=== PATIENT | female | born 1950 | race Caucasian/White ===

== ENCOUNTER 2020-03-25 11:13 | Outpatient (CLI) | payer MEDICARE, OTHER, SELFPAY ==
--- NOTE | 2020-03-25 11:28 | MM_ITS ---
WS: [id number] BILATERAL DIGITAL SCREENING MAMMOGRAPHY WITH CAD CLINICAL INFORMATION: SCREENING HISTORY: Screening mammogram. No current complaints. COMPARISON: December 17, 2018 TECHNIQUE: Bilateral CC and MLO views. FINDINGS: Scattered fibroglandular densities bilaterally. No suspicious focal mass, asymmetry, calcifications, or architectural distortion. No evidence of malignancy. Vascular calcification. A few punctate calcif ications are stable. MM/[place] [id number] IMPRESSION: BI-RADS: 2-Benign FOLLOW UP: 1 Year Follow-up Recommend return to annual screening mammography.
== END 2020-03-25 11:14 | disposition home or self-care (01) ==
LOC: RADSHAW 11:21
PROVIDERS: PCP Family Medicine; Visit Provider Family Medicine
DX: Z12.31 Encounter for screening mammogram for malignant neoplasm of breast (principal)
CPT/HCPCS: 77067

== ENCOUNTER 2020-12-22 14:10 | Outpatient (CLI) | payer MEDICARE, OTHER, SELFPAY ==
--- NOTE | 2020-12-22 14:19 | XR_ITS ---
WS: [id number] SCREENING DEXA SCAN [place] CLINICAL INFORMATION: POSTMENOPAUSAL COMPARISON: None. FINDINGS: The L1-L4 bone mineral density measures 1.161 g/cm2. This corresponds to a T score score of -0.2 and Z score of 1.5. Left femoral neck bone mineral density measures 1.039 g/cm2. This corresponds to a T score of 0.3 and Z score of 1.7. Right femoral neck bone mineral density measures 1.085 g/cm2. This corresponds to a T score 0.6of and Z score of 2.0. Mean femoral neck bone mineral density measures 1.062 g/cm2. This corresponds to a T score of 0.4 and Z score of 1.8. XR/XR DEXA axial skeleton* [id number] IMPRESSION: Normal bone mineralization. Patient's FRAX calculated 10 year probability for major osteoporotic fracture i s 7.7 % and osteoporotic hip fracture is 0.5%.
== END 2020-12-22 14:11 | disposition home or self-care (01) ==
PROVIDERS: PCP Family Medicine; Visit Provider Family Medicine
DX: Z78.0 Asymptomatic menopausal state (principal)
CPT/HCPCS: 77080

== ENCOUNTER → 2021-12-12 15:05 | Outpatient (BNVA) | payer MEDICARE, OTHER, SELFPAY | PROVIDERS: PCP Family Medicine; Visit Provider Family Medicine | DX: E11.9 Type 2 diabetes mellitus without complications (principal) | CPT/HCPCS: 80053; 80061; 83036; 85025 ==

== ENCOUNTER → 2021-12-19 14:53 | Outpatient (BNVA) | payer MEDICARE, OTHER, SELFPAY | PROVIDERS: PCP Family Medicine; Visit Provider Family Medicine | DX: E03.9 Hypothyroidism, unspecified (principal); E78.5 Hyperlipidemia, unspecified | CPT/HCPCS: 84443 ==

== ENCOUNTER 2022-07-19 10:59 | Outpatient (CLI) | payer MEDICARE, OTHER, SELFPAY ==
--- NOTE | 2022-07-19 11:13 | MM_ITS ---
WS: [id number] SCREENING DIGITAL BREAST TOMOSYNTHESIS MAMMOGRAM WITH CAD HISTORY: SCREENING COMPARISON: 03/25/2020 and 12/17/2018 Bilateral CC and MLO with tomosynthesis and synthetic mammography submitted. Computer aided detection analyzed. Breast composition: There are scattered areas of fibroglandular density. Well-circumscribed mass in the lateral inferior LEFT breast near 4:00 at a middle depth. This new mas s measures 9.4 mm. There is an additional 1.0 cm mass in the anterior medial inferior LEFT breast. RI GHT breast is negative. MM/[place] [id number] IMPRESSION: BI-RADS: 0-Incomplete: Need additional imaging evaluation FOLLOW UP: Need Additional Imaging LEFT breast: Spot compression views (CC and MLO). True ML. Ultrasound to follow if abnormality persists.
== END 2022-07-19 11:00 | disposition home or self-care (01) ==
LOC: RAD 11:00
PROVIDERS: PCP Family Medicine; Visit Provider Family Medicine
DX: Z12.31 Encounter for screening mammogram for malignant neoplasm of breast (principal)
CPT/HCPCS: 77063; 77067

== ENCOUNTER → 2022-07-24 09:38 | Outpatient (BNVA) | payer MEDICARE, OTHER, SELFPAY | PROVIDERS: PCP Family Medicine; Visit Provider Podiatrist Foot & Ankle Surgery | DX: M21.611 Bunion of right foot (principal); M25.872 Other specified joint disorders, left ankle and foot; M77.41 Metatarsalgia, right foot; M77.42 Metatarsalgia, left foot | CPT/HCPCS: 73630; 99203 ==

== ENCOUNTER 2022-08-07 09:35 | Outpatient (CLI) | payer MEDICARE, OTHER, SELFPAY ==
--- NOTE | 2022-08-07 09:51 | MM_ITS ---
WS: [id number] ADDITIONAL VIEWS LEFT MAMMOGRAM with tomosynthesis. LEFT BREAST ULTRASOUND HISTORY: ABNORMAL MAMMO COMPARISON: 07/19/2022, 03/25/2020 LEFT MAMMOGRAM: Spot compression views and true ML with tomosynthesis and sympathetic mammography. Nodules persist in the LEFT breast as seen on the prior study. Well-circumscribed mass in the lateral LEFT breast measures 9 mm and is unchanged. There is an additional 9 mm nodule in the medial breast just near the nipple line. Ultrasound to follow. LEFT BREAST ULTRASOUND 2-D and color Doppler imaging submitted. Multiple cysts are noted within the breast. At 9:00 there is a cyst measuring 7 x 5 x 8 mm correspond ing to the mammographic abnormality. This is near the areola. In the lateral LEFT breast from 3-5 o'c lock there are multiple cysts. The largest measuring 1.0 x 0.6 x 0.7 cm corresponds to the mammograph ic findings. No solid masses are identified. MM/[place] [id number] IMPRESSION: BI-RADS: 2-Benign FOLLOW UP: 1 Year Follow-up LEFT breast masses correspond to benign cysts which have developed since the pr ior exam.
== END 2022-08-07 09:36 | disposition home or self-care (01) ==
PROVIDERS: PCP Family Medicine; Visit Provider Family Medicine
DX: R92.8 Other abnormal and inconclusive findings on diagnostic imaging of breast (principal); N60.02 Solitary cyst of left breast
CPT/HCPCS: 76642; 77061; G0279

== ENCOUNTER 2022-09-04 09:51 | Outpatient (CLI) | payer MEDICARE, OTHER, SELFPAY | END 2022-09-04 09:52 | disposition home or self-care (01) | LOC: SPT 09:52 | PROVIDERS: PCP Family Medicine; Visit Provider Podiatrist Foot & Ankle Surgery | DX: Z46.89 Encounter for fitting and adjustment of other specified devices (principal); M77.40 Metatarsalgia, unspecified foot; M21.619 Bunion of unspecified foot; M25.872 Other specified joint disorders, left ankle and foot | CPT/HCPCS: 97760; L3030 ==

== ENCOUNTER → 2022-12-26 10:15 | Outpatient (BNVA) | payer MEDICARE, OTHER, SELFPAY | PROVIDERS: PCP Family Medicine; Visit Provider Family Medicine | DX: E78.5 Hyperlipidemia, unspecified (principal); E03.9 Hypothyroidism, unspecified | CPT/HCPCS: 80053; 80061; 85025 ==

== ENCOUNTER 2023-08-17 10:15 | Outpatient (CLI) | payer MEDICARE, OTHER, SELFPAY ==
--- NOTE | 2023-08-17 10:20 | MM_ITS ---
WS: [id number] BILATERAL SCREENING DIGITAL TOMOSYNTHESIS MAMMOGRAM WITH CAD HISTORY: SCREENING COMPARISON: 03/25/2020, 07/19/2022 Bilateral CC and MLO views with tomosynthesis and synthetic mammography submitted. Computer aided det ection analyzed. Breast composition: There are scattered areas of fibroglandular density. No suspicious masses, microc alcifications or architectural distortion. Reidentified is a slightly lobulated 9 mm mass in the medi al LEFT breast which was identified as a cyst on the prior mammogram and ultrasound from 08/07/2022. B enign calcification RIGHT breast. IMPRESSION: MM/[place] [id number] BI-RADS: 2-Benign FOLLOW UP: 1 Year Follow-up
== END 2023-08-17 10:16 | disposition home or self-care (01) ==
LOC: RAD 10:16
PROVIDERS: PCP Family Medicine; Visit Provider Family Medicine
DX: Z12.31 Encounter for screening mammogram for malignant neoplasm of breast (principal); R92.323 Mammographic fibroglandular density, bilateral breasts; N63.20 Unspecified lump in the left breast, unspecified quadrant; R92.1 Mammographic calcification found on diagnostic imaging of breast
CPT/HCPCS: 77063; 77067

== ENCOUNTER 2023-10-09 07:54 | Observation (INO) | payer MEDICARE, OTHER, SELFPAY ==
[2023-10-09] VITALS (21 sets, daily range): BP systolic 103–150; BP diastolic 51–74; PULSE 52–93; RESP 11–31; TEMP 36.4–36.7; O2SAT 90–97; BMI 27.4
--- NOTE | 2023-10-09 08:17 | CT_ITS ---
WS: [id number] CT ABDOMEN AND PELVIS NONCONTRAST HISTORY: Abdominal pain TECHNIQUE: Imaging performed through the abdomen and pelvis. Coronal and sagittal reformats are submi tted. All CT scans at [facility] use at least one of these dose optimization techniques: auto mated exposure control; mA and/or kV adjustment per patient size (includes targeted exams where dose is matched to clinical indication); or iterative reconstruction. DLP: 535.49 mGy.cm COMPARISON: None available. Lower thorax: Benign granuloma RIGHT lung base. Heart size is normal. Moderate hiatal hernia. Liver: Normal size liver. No mass or bile duct dilatation. Gallbladder: Slight gallbladder hydrops. There is a large stone in the lumen of the gallbladder with a maximum diameter of 1.7 cm. There is no pericholecystic fluid. The common bile duct is normal size. Pancreas: Normal size and attenuation. Normal pancreatic duct. No pancreatitis or mass. Spleen: Normal size with granulomata. Adrenal glands: Normal. No mass. Right kidney: Normal size kidney with no mass or hydronephrosis. Left kidney: Normal size kidney with no mass or hydronephrosis. Aorta: Normal abdominal aorta, no aneurysm or atherosclerosis. No free fluid, intraperitoneal air or significant lymphadenopathy. GI tract: Minimally distended stomach. There is no small bowel obstruction. No evidence for appendici tis. There is mild pericolonic stranding with hazy attenuation beginning at the hepatic flexure throu gh transverse colon and to a lesser extent distally. No obstructive pattern. There are a few scattere d diverticula distally without acute diverticulitis. Abdominal wall: Small umbilical hernia contains fat only. Pelvis: No free fluid. Prior hysterectomy. No adenopathy. Osseous structures: Mild thoracolumbar scoliosis. Asymmetric disc space narrowing at L4-5. CT/CT abdomen pelvis wo con [id number] IMPRESSION: 1. Cholelithiasis without evidence for acute cholecystitis. 2. Mild pericolonic inflammation involving the ascending and transverse colon predominantly. This is most likely due to infection or portal hypertension. Isc hemia may appear similar. No significant atherosclerotic plaque is noted in the aorta or mesenteric arteries. 3. Moderate hiatal hernia. 4. No renal obstruction. 5. Normal appendix.
[2023-10-09 08:39] LABS: Basophils # 0.1 10^3/uL (0.0-0.1); Basophils % 1.1 %; Eosinophils # 0.1 10^3/uL (0.0-0.8); Eosinophils % 1.7 %; Hematocrit 44.4 % (36-47); Lymphocytes # 1.8 10^3/uL (0.8-4.8); Lymphocytes % 33.5 %; Mean Corpuscular Hemoglobin 30.5 pg (27-33); Mean Corpuscular Volume 89.7 fl (85-98); Mean Platelet Volume 9.1 fL (7.4-10.4); Monocytes # 0.4 10^3/uL (0.2-0.9); Neutrophils # 2.89 10^3/uL (1.8-7.7); Neutrophils % 55.5 %; Nucleated Red Blood Cells % 0 %; Platelet Count 311 10^3/cmm (157-399); Red Blood Count 4.95 10^6/uL (3.85-5.65); Red Cell Distribution Width 12.8 % (12.1-15.1); White Blood Count 5.22 10^3/uL (3.29-11.43)
--- NOTE | 2023-10-09 08:40 | ECG_ITS ---
[facility] Test Date: 2023-10-09 Pat Name: Jenna Bo Department: Room: Gender: Female Credit Specialist: : 1950 Requested By: Xiang Louise Order Number: [id number] Los MD: Vladimir Adamson M.D. Measurements Intervals [place] Rate: 48 P: 58 ID: [id number] QRS: 13 QRSD: 89 T: 1 QT: 450 QTc: 405 Interpretive Statements SINUS BRADYCARDIA LOW QRS VOLTAGE IN PRECORDIAL LEADS [QRS DEFLECTION < 1.0 mV IN CHEST LEADS] No previous ECG available for comparison Electronically Signed On 10-12-2023 13:22:03 CDT by Vladimir Adamson M.D. [id number]
[2023-10-09] MEDS: ondansetron 2 mg/ML SDV 2 mL 4 MG IVP (08:42)
[2023-10-09 08:46] LABS: Alanine Aminotransferase 11 U/L (0-33); Albumin Level 3.8 g/dL (3.5-5.2); Alkaline Phosphatase 86 U/L (35-105); Anion Gap 16.5 (5-19); Aspartate Amino Transferase 15 U/L (0-32); Blood Urea Nitrogen 9 mg/dL (8-23); Calcium 8.9 mg/dL (8.5-10.5); Carbon Dioxide 24 mmol/L (22-29); Chloride 101 mmol/L (98-107); Creatinine Clr Calc Pharmacy 57.4745; Globulin 3.2 g/dL (1.3-4.6); Glucose 119 mg/dL (65-115); Lipase 16 U/L (13-60); Osmolality Calculated 286 mOsm/kg (285-295); Potassium 3.5 mmol/L (3.5-5.1); Sodium 138 mmol/L (136-145); Total Bilirubin 0.6 mg/dL (0.15-1.2)
--- NOTE | 2023-10-09 09:14 | CT_ITS ---
WS: [id number] CT HEAD NONCONTRAST HISTORY: dizziness TECHNIQUE: Contiguous axial imaging performed through the brain in 2.5 mm imaging. Bone and soft tiss ue windows. Sagittal and coronal reformats reviewed. All CT scans at [facility] use at least one of these dose optimization techniques: automated exposure control; mA and/or kV adjustment per pa tient size (includes targeted exams where dose is matched to clinical indication); or iterative recon struction. DLP: 1075.74 mGy.cm COMPARISON: None available. No acute intracranial hemorrhage, midline shift or mass effect. Mild atrophy and mild small vessel ischemic disease. No prior infarct. Ventricles: Normal size with no hydrocephalus. No inferior displacement the cerebellar tonsils. Paranasal sinuses: As visualized are clear. Mastoid air cells: Coalescence and sclerosis of the mastoid air cells on the LEFT. Cerumen in the LEF T external auditory canal. Calvarium and scalp: Skull is intact with no soft tissue edema or swelling. CT/CT head wo con* [id number] IMPRESSION: 1. No acute intracranial hemorrhage or edema. 2. Mild cerebral atrophy and small vessel ischemic disease.
--- NOTE | 2023-10-09 09:22 | ED_ITS ---
HPI - Nausea/Vomiting/Diarrhea 2 General: Chief complaint: Nausea/Vomiting/Diarrhea Stated complaint: N/V Time Seen by Provider: 10/09/23 08:02 Source: patient Mode of arrival: ambulatory History of Present Illness: 73-year-old female presents to the emerg ency room complaining of nausea and vomiting along with dizziness. The nausea initially began yesterday although she had no dizziness associated with it this morning she woke up she was very dizzy when she first stood up when she laid back down, she said she improved when she settled in . Symptoms are reproducible whenever she moves her head too much or when she sits up. During the process exam I had her sit up she stated her symptoms got much worse. We also tried to lay her down flat to do orthostatics when I was finishing my exam and she could not tolerate that her symptoms again got significantly worse. She even noticed as we are talking doing her history of she shook her head yes or no it would seem to make her symptoms worse. She reported that when she rode in with the ambulance they were very severe. She did not notice difficulty with speech or swallowing. No difficulty with vision no weakness that is what is lateralizing. She had a couple of episodes of diarrhea after she arrived in the emergency room no hematochezia or melena no hematemesis. She denies any chest pain she is moderately bradycardic but otherwise asymptomatic of that. The nausea and dizziness are all new this is not something she has had in the past. Her last known well would be around 11:00 last night. She said she did not wake up at any point during the night until she woke up this morning with her symptoms. MD elicited complaint: nausea, vomiting and diarrhea Onset (ago): minute(s) Associated nausea: Yes Location of pain: Diffuse Severity: mild Quality: cramping Exacerbating factors: movement (Sitting up or laying down) Relieving factors: other (Remaining still) Associated symtoms: Reports nausea; Denies altered mental status, anxiety, bloating, change in vision, chest pain, cough, diaphoresis, decreased urine output, dizziness, dysuria, epistaxis, fatigue, fecal incontinence, fevers/chills, headache(s), anorexia, malaise, myalgias, numbness, palpitations, rash, short of breath, syncope, tenesmus, tinnitus or weakness Review of Systems 2 Const: Denies: fever(s), chills, fatigue, malaise or diaphoresis Eyes: Denies: change in vision ENMT: Denies: tinnitus or epistaxis Card: Denies: chest pain, palpitations or syncope Resp: Denies: dyspnea GI: Reports: nausea; Denies: abdominal pain, bloating or fecal incontinence : Denies: dysuria, urinary frequency or urinary urgency Musc: Denies: neck pain or back pain Skin/Breast: Denies: rash Neuro: Denies: headache(s) or dizziness Psych: Denies: anxiety PFSH ED 2 PFSH: Medical History (Updated 10/11/23 @ 06:23 by Xiang Holt DO) Anxiety GERD (gastroesophageal reflux disease) Hyperlipidemia Hypothyroid Surgical History (Updated 10/09/23 @ 10:49 by Maxwell Verma MD) History of breast biopsy History of hysterectomy Family History (Updated 10/09/23 @ 10:49 by Maxwell Verma MD) Other Cancer Social History (Updated 10/09/23 @ 10:49 by Maxwell Verma MD) Smoking and tobacco/nicotine status: never used tobacco/nicotine Alcohol intake: never Physical Exam 2 Const: EXAM LIMITATIONS: no altered mental status GENERAL APPEARANCE: c ooperative and comfortable ORIENTATION/CONSCIOUSNESS: Yes awake, Yes oriented to person, Yes oriented to place and Yes oriented to time HENMT: COMMON NORMALS: normocephalic, atraumatic and hearing grossly normal bilaterally HEAD & SCALP: normocephalic and atraumatic Resp: COMMON NORMALS: normal respiratory effort, No retractions, No use of accessory muscles and clear to auscultation bilaterally AUSCULTATION: clear to auscultation bilaterally Cardio: COMMON NORMALS: regular rhythm and No murmurs present (Cardio) R ATE: bradycardic RHYTHM: regular rhythm GI: COMMON NORMALS: Soft to palpation and No hepatosplenomegaly present A USCULTATION: Yes normoactive bowel sounds PALPATION: Yes Soft to palpation, No Tenderness to palpation present (GI), No Guarding due to palpation present (GI) and Yes No hepatosplenomegaly present Extremity: COMMON NORMALS: normal to inspection, capillary refill normal, no clubbing, cyanosis or edema, no calf tenderness and no pedal edema Neuro: SENSORIUM/ORIENTATION: Yes oriented to person, Yes oriented to place and Yes oriented to time Skin: COMMON NORMALS: no rashes or lesions noted GENERAL SKIN EXAM: no rashes or lesions noted Course 2 Vital Signs: Vital signs: Vital Signs Temperature 98.0 F 10/10/23 09:59 Pulse Rate 66 10/10/23 09:59 Respiratory Rate 18 10/10/23 09:59 Blood Pressure 108/65 10/10/23 09:59 Pulse Oximetry 92 10/10/23 09:59 Oxygen Delivery Me thod Room Air 10/10/23 07:54 MDM - Nausea/Vomiting/Diarrhea Medical Decision Making Initially patient main complaint was reported nausea vomiting and diarrhea. When I seen her and talks to her she added a component of dizziness and was actually a pretty prominent part of her history was suspicious of a posterior stroke. However initially noted that her symptoms were somewhat reproducible with change in position and moving her head. We went ahead and did do the CT she not had any recent trauma the CT of her head went very poorly and she when she came back from the emergency room she was vomiting profusely. Her only significant finding is ataxia is more prominent with attempts at heel negron and it is with [id number] but present on both testing. Discussed with Dr. Gould. Her last known well would be 11:[address] Gould did ask that we go ahead and call a stroke alert even though she is out of the window for tPA even at the time of presentation additionally she her stroke score is not adequate for embolectomy. Dr. Gould did recommend going ahead with a CTA head and neck. Symptoms concerning for possible posterior CVA. Medical Records I reviewed the patient's medical records. Lab Data I reviewed the patient's lab results. 10/10/23 05:23 10/10/23 05:23 Radiology Impressions Abdomen/Pelvis CT 10/09/23 08:17 IMPRESSION: 1. Cholelithiasis without evidence for acute cholecystitis. 2. Mild pericolonic inflammation involving the ascending and transverse colon predominantly. This is most likely due to infection or portal hypertension. Ischemia may appear similar. No significant atherosclerotic plaque is noted in the aorta or mesenteric arteries. 3. Moderate hiatal hernia. 4. No renal obstruction. 5. Normal appendix. Head CT 10/09/23 09:14 IMPRESSION: 1. No acute intracranial hemorrhage or edema. 2. Mild cerebral atrophy and small vessel ischemic disease. Head/Neck CTA 10/09/23 09:39 IMPRESSION: 1. No significant cervical intracranial carotid artery stenosis. 2. Dominant LEFT vertebral artery. No dissection. 3. Posterior cerebral arteries are patent. 4. No cerebral aneurysm. Chest X-Ray 10/09/23 10:53 IMPRESSION: No acute cardiopulmonary abnormality. Head MRI 10/09/23 10:54 IMPRESSION: 1. No evidence of restricted diffusion to suggest acute ischemia. 2. Minimal small vessel changes. Moderate parenchymal volume loss. 3. No hemosiderin on the susceptibly weighted images. 4. No other acute findings. Laboratory Results WBC 5.22 10^3/uL (3.29-11.43) 10/09/23 08:15 RBC 4.95 10^6/uL (3.85-5.65) 10/09/23 08:15 Hgb 15.10 g/dL (11.27-16.99) 10/09/23 08:15 Hct 44.4 % (36-47) 10/09/23 08:15 MCV 89.7 fl (85-98) 10/09/23 08:15 MCH 30.5 pg (27-33) 10/09/23 08:15 MCHC 34.0 g/dL (30-55) 10/09/23 08:15 RDW 12.8 % (12.1-15.1) 10/09/23 08:15 Plt Count 311 10^3/cmm (157-399) 10/09/23 08:15 MPV 9.1 fL (7.4-10.4) 10/09/23 08:15 Neut % (Auto) 55.5 % 10/09/23 08:15 Lymph % (Auto) 33.5 % 10/09/23 08:15 Richardson % (Auto) 8.0 % 10/09/23 08:15 Eos % (Auto) 1.7 % 10/09/23 08:15 Baso % (Auto) 1.1 % 10/09/23 08:15 Neut # (Auto) 2.89 10^3/uL (1.8-7.7) 10/09/23 08:15 Lymph # (Auto) 1.8 10^3/uL (0.8-4.8) 10/09/23 08:15 Richardson # (Auto) 0.4 10^3/uL (0.2-0.9) 10/09/23 08:15 Eos # (Auto) 0.1 10^3/uL (0.0-0.8) 10/09/23 08:15 Baso # (Auto) 0.1 10^3/uL (0.0-0.1) 10/09/23 08:15 Nucleated RBC % (auto) 0 % 10/09/23 08:15 Nucleated RBCs # 0.0 /100WBC 10/09/23 08:15 PT 12.90 SECONDS (12.1-14.9) 10/09/23 08:15 INR 0.94 (0.8-1.2) 10/09/23 08:15 APTT 26.8 SECONDS (23.9-36.7) 10/09/23 08:15 Sodium 138 mmol/L (136-145) 10/09/23 08:15 Potassium 3.5 mmol/L (3.5-5.1) 10/09/23 08:15 Chloride 101 mmol/L (98-107) 10/09/23 08:15 Carbon Dioxide 24 mmol/L (22-29) 10/09/23 08:15 Anion Gap 16.5 (5-19) 10/09/23 08:15 BUN 9 mg/dL (8-23) 10/09/23 08:15 Creatinine 0.6 mg/dL (0.5-0.9) 10/09/23 08:15 GFR Calculation Not Reportable 10/09/23 08:15 Glucose 119 mg/dL (65-115) H 10/09/23 08:15 POC Glucose 115 mg/dL (70-110) H 10/09/23 10:02 Calculated Osmolality 286 mOsm/kg (285-295) 10/09/23 08:15 Calcium 8.9 mg/dL (8.5-10.5) 10/09/23 08:15 Magnesium 2.1 mg/dL (1.7-2.3) 10/09/23 08:15 Total Bilirubin 0.6 mg/dL (0.15-1.2) 10/09/23 08:15 AST 15 U/L (0-32) 10/09/23 08:15 ALT 11 U/L (0-33) 10/09/23 08:15 Alkaline Phosphatase 86 U/L (35-105) 10/09/23 08:15 Troponin T Baseline < 6 ng/L (0-10) 10/09/23 08:15 Troponin T 120 Minute 6.00 ng/L (0-10) 10/09/23 10:30 Delta Troponin T 0.46297 ABS# (0-10) 10/09/23 10:30 Total Protein 7.0 g/dL (6.6-8.7) 10/09/23 08:15 Albumin 3.8 g/dL (3.5-5.2) 10/09/23 08:15 Globulin 3.2 g/dL (1.3-4.6) 10/09/23 08:15 Lipase 16 U/L (13-60) 10/09/23 08:15 TSH 1.83 uIU/mL (0.27-4.20) 10/09/23 08:15 All radiology interpretation(s) finalized by discharge Discharge Plan Discharge Patient Disposition: Admitted As Inpatient Admit Provider: Maxwell Verma Clinical Impression: Posterior circulation stroke Condition: Stable Discharge Diet: Usual diet Discharge Activity: Increase activity as tolerated Coding Level of Care Code ED Mechan[employer] for [facility]head NIH stroke score NIHSS Level Of Consciousness - 1a: 0 Level Of Consciousness Questions - 1b: Both Correct Level Of Consciousness Commands - 1c: Both Correct Best Gaze - 2: Normal Visual Hernandez - 3: No Visual Loss Facial Palsy - 4: Normal Motor Arm Right - 5: No Drift Motor Arm Left - 5: No Drift Motor Leg Right - 6: No Drift Motor Leg Left - 6: No Drift Limb Ataxia - 7: Present In Two Limbs Sensory - 8: Normal Best Language - 9: No Aphasia Dysarthia - 10: Normal Extinction And Inattention - 11: 0 Score Total Score: 2
--- NOTE | 2023-10-09 09:39 | CT_ITS ---
WS: [id number] CT ANGIOGRAM CEREBRAL AND CAROTID ARTERIES HISTORY: posterior CVA TECHNIQUE: CT angiogram is performed of the carotid and cerebral arteries. During arterial injection imaging is obtained from the skull vertex to the aortic arch in 1.25 mm imaging. Coronal and sagittal reformats are submitted. Additional multi planar reformats of the carotid and cerebral arteries are submitted, MIP imaging also reviewed. NASCET criteria utilized. [facility] at least one of these dose optimization techniques: automated exposure control; mA and/or kV adjust ment per patient size (includes targeted exams where dose is matched to clinical indication); or iter ative reconstruction. CONTRAST: Omnipaque 350; 100 mL IV. DLP: 420.63 mGy.cm COMPARISON: None available. Carotid Angiogram: Right carotid: Common carotid artery: Arises normally from the innominate artery. No significant plaque or stenosis. Internal carotid artery: No plaque or stenosis. External carotid artery: Patent. Left carotid: Common carotid artery: Arises normally from the aorta. No significant plaque or stenosis. Internal carotid artery: No plaque or stenosis. External carotid artery: Patent. Right vertebral artery: Unremarkable. Left vertebral artery: Dominant and patent. Subclavian arteries: RIGHT subclavian artery is well visualized and normal. Partial obscuration of th e LEFT subclavian due to contrast injection through the LEFT arm. Upper thorax: Normal. Thyroid gland: Small caliber, hypoplastic thyroid. Osseous structures: Unremarkable. CEREBRAL ANGIOGRAM: Intracranial vertebral arteries: LEFT vertebral artery is very slightly dominant. No occlusion or robyn nosis. Basilar artery: No significant stenosis or occlusion. No aneurysm. Intracranial Internal carotid arteries: No high-grade stenosis. Mild plaque. No Middle cerebral arteries: Normal. Anterior cerebral arteries and ACOM: Normal. Posterior cerebral arteries and PCOM's: Posterior cerebral arteries are both widely patent. Absent or hypoplastic LEFT posterior communicating artery. RIGHT posterior communicating artery is patent. Dural venous sinuses are normally enhancing. Small caliber LEFT transverse sinus. Mastoid air cells: Normal. Paranasal sinuses: Normal. Calvarium: Normal. CT/CT angio headneck* [id number] IMPRESSION: 1. No significant cervical intracranial carotid artery stenosis. 2. Dominant LEFT vertebral artery. No dissection. 3. Posterior cerebral arteries are patent. 4. No cerebral aneurysm.
[2023-10-09] MEDS: sodium chloride 0.9% 1,000 ML 999 ML IV (09:43)
[2023-10-09] MEDS: LORazepam 2 mg/mL INJ 10 mL MDV 0.5 MG IVP (09:45)
[2023-10-09 09:52] LABS: Troponin(5th) Baseline < 6 ng/L (0-10)
[2023-10-09] MEDS: iohexol 350 mg/mL 500 mL Btl (per mL) IV (09:59)
[2023-10-09 10:03] LABS: INR 0.94 (0.8-1.2)
[2023-10-09 10:04] LABS: Partial Thromboplastin Time 26.8 SECONDS (23.9-36.7)
[2023-10-09 10:07] LABS: Glucose Point of Care 115 mg/dL (70-110)
--- NOTE | 2023-10-09 10:45 | P.HP_ITS ---
Providers/Chief Complaint 2 Admitting Physician: Maxwell Bolden MD Primary Care Provider: Nnamdi Sanchez MD Chief Complaint: N/V History of Present Illness Jenna Bo is a 73 year old female with history of hypothyroidism anxiety and GERD who presents to the emergency department complaining of nausea and vomiting and dizziness. She reports she did not feel normal yesterday, and had a slightly queasy stomach. She seemed to feel better through the day, and this did not alarm her as she frequently has some stomach issues and is on Protonix. This morning, around 6:30 AM when she was getting up, she was very dizzy when she first tried to stand up. She felt like the room was spinning. It made her very nauseous. She had no focal weakness. Her and her decided to come to the emergency department. Here when getting up, she had another episode of severe nausea with trying to get upright, ended up vomiting. She did not have any diarrhea, but did have a bowel movement which she described was near her normal. She denies any chest pain, headache. She reports laying down makes the dizziness better, as this showed in her eyes. She has not had vertigo before that she remembers. She reports no swallowing difficulties. No blood in stool or black or tarry stool. No history of coronary disease, or stroke. In the emergency department she received some Ativan IV and IV fluids. I have also alerted that she received 2 aspirin prior to coming in. Review of Systems 2 General: Reports: 10 or more systems reviewed and unremarkable except in HPI and below Card: Denies: chest pain Resp: Denies: dyspnea GI: Reports: nausea and vomiting; Denies: abdominal pain, hematochezia or melena Medications/Allergies Home Medications Medication Instructions Recorded Confirmed Last Taken Type Custom Sole Support #1 ea 07/24/22 10/09/23 Unknown Rx levothyroxine 50 mcg tablet 50 mcg PO DAILY #90 tabs 01/02/23 10/09/23 10/08/23 Rx pantoprazole 40 mg tablet,delayed 40 mg PO DAILY 01/02/23 10/09/23 10/08/23 History release alprazolam 0.25 mg tablet 0.25 mg PO TID PRN anxiety #90 tabs 10/02/23 10/09/23 10/08/23 Rx Allergies Allergy/AdvReac Type Severity Reaction Status Date / Time orudus AdvReac Intermediate Unknown Uncoded 07/24/22 09:37 PFSH Acute 2 PFSH: Medical History (Updated 10/09/23 @ 10:57 by Maxwell Verma MD) Anxiety GERD (gastroesophageal reflux disease) Hyperlipidemia Hypothyroid Surgical History (Updated 10/09/23 @ 10:49 by Maxwell Verma MD) History of breast biopsy History of hysterectomy Family History (Updated 10/09/23 @ 10:49 by Maxwell Verma MD) Other Cancer Social History (Updated 10/09/23 @ 10:49 by Maxwell Verma MD) Smoking and tobacco/nicotine status: never used tobacco/nicotine Alcohol intake: never Vitals/I&O/Wt Last Vital Signs Temp 97.5 F L 10/09/23 07:55 Pulse 62 10/09/23 09:40 Resp 23 H 10/09/23 09:40 BP 121/68 10/09/23 10:05 Pulse Ox 95 10/09/23 10:05 Weight last 48 hrs Weight 68.039 kg Physical Exam 2 Narrative: General exam is white female, laying flat and currently in no distress HEENT: Atraumatic normocephalic. Oropharynx is clear Neck is supple no lymphadenopathy thyromegaly Cardiovascular regular rate and rhythm, no murmur Lungs clear no wheezing or crackles Abdomen is soft nontender with positive bowel sounds. No obvious organomegaly exams deferred Extremities no sinus clubbing edema, cap refill brisk Skin no rash Neuro no obvious focal deficits. Please note severe dizziness when patient got up previously along with nausea and vomiting. NIHSS score from the emergency department physician is to. Certainly she has no focal deficits or obvious cerebellar signs with her being supine. No visual field defects. She does have some horizontal nystagmus, but no vertical nystagmus. Data 10/09/23 08:15 10/09/23 08:15 Other Labs: Head and neck CTA no flow-limiting lesions Head CT which I reviewed no acute changes. Abdomen pelvis CT demonstrated cholelithiasis without cholecystitis, moderate hiatal hernia, question pericolonic inflammation ascending and transverse colon. Urinalysis is ordered LFTs calcium and albumin and lipase are all normal. Troponin is less than 6. I have ordered a chest x-ray EKG demonstrates a heart rate of around 50, normal axis, nonspecific ST-T wave changes. Sinus bradycardia. A&P Assessment and plan (1) Dizziness: Patient presents with significant dizziness, acute onset this morning. It is concerning that this record was presents an acute posterior circulation stroke. Cannot completely exclude inner ear pathology as well. She does not have any abdominal pain, only became nauseated with standing up, and there is no reason to think that she has colitis at the present time. Will place under observation category for stroke workup CTA has been done demonstrating no flow-limiting lesions and initial head CT negative other than small vessel changes. Aspirin has been given today, continue 3 and 25 mg daily Start statin Telemetry Echocardiogram Therapy consultations Hydration Orthostatic blood pressures twice daily Monitor for any recurrent GI symptomatology MRI head to see if stroke can be identified. Check TSH and magnesium Neurologic checks NIHSS score 2. Not candidate for tPA/TNKase and no thrombus seen on CTA. Not candidate for thrombectomy. Plan Multiple other medical problems as outlined in past medical history Full code Lovenox for DVT prophylaxis as well as SCDs Attestations 2 Medical Necessity Statement*: Will need less than 2 midnight stay for evaluation and treatment of dizziness, CVA Coding Level of Care Code Acute Code for Chg Fwd Diagnoses Dizziness R42
--- NOTE | 2023-10-09 10:53 | XRR_ITS ---
PROCEDURE INFORMATION: Exam: XR Chest Exam date and time: 10/09/2023 11:01 AM Age: 73 years old Clinical indication: Shortness of breath; Additional info: Stroke TECHNIQUE: Imaging protocol: Radiologic exam of the chest. Views: 1 view. COMPARISON: CT angio headneck* [id number] 10/09/2023 9:52 AM FINDINGS: Lungs: The lung parenchyma is clear. Pleural spaces: No pneumothorax. No large pleural effusion. Heart/Mediastinum: The cardiomediastinal silhouette is within normal limits. Bones/joints: Unremarkable. XR/XR chest 1V portable [id number] IMPRESSION: No acute cardiopulmonary abnormality.
--- NOTE | 2023-10-09 10:54 | MR_ITS ---
WS: [id number] MRI HEAD WITHOUT CONTRAST TECHNIQUE: Sagittal T1, T2 axial, T2 axial FLAIR, axial and coronal T1 images, axial susceptibility w eighted imaging, axial diffusion weighted images, and coronal T2 images were obtained. CLINICAL INFORMATION: possible stroke, vertigo COMPARISON: CT head 10/09/2023 FINDINGS: No evidence of restricted diffusion to suggest acute ischemia. Ventricular system and basal cisterns are patent. Minimal small vessel changes. Moderate parenchymal volume loss. Normal posterior fossa. N ormal vascular flow voids at the skull base. No extra-axial fluid collections. No evidence of mass or mass effect. Paranasal sinuses and mastoid air cells are well aerated. No hemosiderin on the susceptibly weighted images. Normal optic chiasm and pituitary infundibulum. Mi ld symmetric atrophy temporal lobes and hippocampal formations. MR/MR head wo con* [id number] IMPRESSION: 1. No evidence of restricted diffusion to suggest acute ischemia. 2. Minimal small vessel changes. Moderate parenchymal volume loss. 3. No hemosiderin on the susceptibly weighted images. 4. No other acute findings.
[2023-10-09 11:00] LABS: Troponin 5 2HR Delta 0.00001 ABS# (0-10)
--- NOTE | 2023-10-09 11:15 | ECG_ITS ---
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 Measurements Intervals [place] Rate: 87 P: 38 NH: 172 QRS: 1 QRSD: 84 T: -3 QT: 344 QTc: 414 Interpretive Statements SINUS RHYTHM NONSPECIFIC ST & T-WAVE ABNORMALITY Compared to ECG 10/09/2023 08:40:29 T-wave abnormality now present Sinus bradycardia no longer present Electronically Signed On 10-12-2023 13:49:10 CDT by Vladimir Adamson M.D. [id number]
[2023-10-09 11:27] LABS: Magnesium 2.1 mg/dL (1.7-2.3); Thyroid Stimulating Hormone 1.83 uIU/mL (0.27-4.20)
[2023-10-09] MEDS: sodium chloride 0.9% 1,000 ML 100 ML IV (11:45)
--- NOTE | 2023-10-09 12:09 | USCV_ITS ---
Jenna Bo Age: 73 Gender: F : 1950 Exam Date: 10/09/2023 15:33 Ordering Phys: Maxwell Verma MD Technologist: Exam Location: [facility] Indication: cva BP: 124 / 73 HR: 81 Rhythm: Sinus Technical Quality: Adequate MEASUREMENTS (Male / Female) Normal Values 2D ECHO LV Diastolic Diameter PLAX 4.2 cm 4.2 - 5.9 / 3.9 - 5.3 cm IVS Diastolic Thickness 1.0 cm 0.6 - 1.0 / 0.6 - 0.9 cm IVS Systolic Thickness 1.4 cm LVPW Diastolic Thickness 0.9 cm 0.6 - 1.0 / 0.6 - 0.9 cm LVPW Systolic Thickness 1.0 cm LVOT Diameter 2.9 cm LV Ejection Fraction 2D Teich 70.8 % LV Ejection Fraction MOD 2C 80.7 % LV Ejection Fraction 2C AL 82.8 % LA Diameter 2.6 cm RA Systolic Volume 4C AL 33.0 ml RA Systolic Volume 4C MOD 32.3 ml Aorta at Sinotubular Diameter 2.1 cm M-MODE LA Ao Ratio MM 1.4 AV Cusp Separation MM 2.3 cm DOPPLER AV Peak Velocity 141.0 cm/s LVOT Peak Velocity 111.0 cm/s AV Area Cont Eq vti 7.0 cm squared AV Area Cont Eq pk 5.2 cm squared MV Peak Velocity 125.0 cm/s MV Area PHT 2.6 cm squared Mitral E to A Ratio 0.8 TR Peak Velocity 222.0 cm/s TR Peak Gradient 19.7 mmHg TV Peak E Velocity 108.0 cm/s Right Atrial Pressure 3.0 mmHg Pulmonary Artery Systolic Pressu 22.7 mmHg PV Peak Velocity 118.7 cm/s FINDINGS Left Ventricle Normal left ventricular size, systolic function and wall thickness, with no regional wall motion abnormalities.left ventricular ejection fraction is estimated at 65 %. Normal left ventricular wall thickness. Grade I/IV diastolic dysfunction (abnormal relaxation filling pattern), normal to mildly elevated filling pressures. . Right Ventricle The right ventricle is normal in size and function. Right Atrium The right atrium is normal in size. Left Atrium The left atrium is normal in size. Mitral Valve Structurally normal mitral valve without significant stenosis or prolapse. There is trace mitral regurgitation. Aortic Valve Structurally normal aortic valve without significant sclerosis or stenosis. There is no aortic regurgitation. Tricuspid Valve Structurally normal tricuspid valve without significant stenosis or regurgitation. Pulmonary artery systolic pressure is normal. Pulmonic Valve Structurally normal pulmonic valve without significant stenosis. There is no pulmonic regurgitation. Pericardium Normal pericardium without effusion. Aorta Normal ascending aorta dimension. IVC The inferior vena cava appears normal. CONCLUSIONS 1-Normal left ventricular size, systolic function and wall thickness, with no regional wall motion abnormalities.left ventricular ejection fraction is estimated at 65 %. Normal left ventricular wall thickness. Grade I/IV diastolic dysfunction (abnormal relaxation filling pattern), normal to mildly elevated filling pressures. . 2-No significant valve abnormalities. 3-There is no pericardial effusion. 4-There are no prior echocardiogram studies to compare. Aime Garcia MD (Electronically Signed) Final Date: 09 October 2023 18:39 S
[2023-10-09 13:38] LABS: Add Urine Microscopic? NO; Charge for UA Resulting for Rev
[2023-10-09 13:50] LABS: Bilirubin Urine Neg (Negative); Blood Urine Neg (Negative); Glucose Urine UA Norm (Normal); Ketones Urine 1+ (Negative); Leukocyte Esterase Urine Negative (Negative); Nitrate Urine Negative (Negative); Protein Urine Neg (Negative); Specific Gravity, Urine 1.005 (1.005-1.030); Sulfosalicylic Acid Urine Negative (Negative); Urine Appearance Clear (CLEAR); Urine Color Yellow (Yellow); Urobilinogen Urine Neg (Negative); pH Urine 8 (5-7)
[2023-10-09 13:51] LABS: Amphetamines Screen Urine Negative (Negative); Barbiturates Screen Urine Negative (Negative); Benzodiazepines Screen Urine Negative (Negative); Cocaine Screen Urine Negative (Negative); Opiate Screen Urine Negative (Negative); PCP Screen Urine Negative (Negative); THC Screen Urine Negative (Negative)
[2023-10-09 14:20] LABS: Troponin 5 6HR Delta 0.00001 ng/L (0-12)
[2023-10-10] VITALS (8 sets, daily range): BP systolic 103–117; BP diastolic 52–71; PULSE 66–71; RESP 18; TEMP 36.4–36.8; O2SAT 92–93
[2023-10-10] MEDS: sodium chloride 0.9% 1,000 ML 100 ML IV (02:48)
[2023-10-10 06:09] LABS: Basophils # 0.1 10^3/uL (0.0-0.1); Basophils % 0.8 %; Eosinophils # 0.1 10^3/uL (0.0-0.8); Hematocrit 39.2 % (36-47); Lymphocytes # 1.8 10^3/uL (0.8-4.8); Lymphocytes % 30.6 %; Mean Corpuscular HGB Conc 33.2 g/dL (30-55); Mean Corpuscular Hemoglobin 30.4 pg (27-33); Mean Corpuscular Volume 91.6 fl (85-98); Mean Platelet Volume 9.5 fL (7.4-10.4); Monocytes # 0.5 10^3/uL (0.2-0.9); Monocytes % 7.7 %; Neutrophils # 3.53 10^3/uL (1.8-7.7); Neutrophils % 59.4 %; Nucleated Red Blood Cells % 0 %; Platelet Count 276 10^3/cmm (157-399); Red Blood Count 4.28 10^6/uL (3.85-5.65); Red Cell Distribution Width 12.9 % (12.1-15.1); White Blood Count 5.95 10^3/uL (3.29-11.43)
[2023-10-10 06:29] LABS: Alanine Aminotransferase 10 U/L (0-33); Albumin Level 3.3 g/dL (3.5-5.2); Alkaline Phosphatase 69 U/L (35-105); Anion Gap 14.7 (5-19); Aspartate Amino Transferase 12 U/L (0-32); Blood Urea Nitrogen 8 mg/dL (8-23); Calcium 8.2 mg/dL (8.5-10.5); Carbon Dioxide 24 mmol/L (22-29); Chloride 109 mmol/L (98-107); Creatinine Clr Calc Pharmacy 57.7474; Globulin 2.6 g/dL (1.3-4.6); Glucose 102 mg/dL (65-115); Magnesium 2.1 mg/dL (1.7-2.3); Osmolality Calculated 297 mOsm/kg (285-295); Potassium 3.7 mmol/L (3.5-5.1); Sodium 144 mmol/L (136-145); Total Bilirubin 0.5 mg/dL (0.15-1.2); Total Protein 5.9 g/dL (6.6-8.7)
[2023-10-10 06:31] LABS: Chol HDL Ratio 3.25 mg/dL (0.0-4.40); Cholesterol 192 mg/dL (0-200); HDL Cholesterol 59 mg/dL (60-100); LDL Cholesterol Calculated 119 mg/dL (50-129); LDL HDL Ratio 2.02 RATIO (0.00-3.22); Triglycerides 70 mg/dL (0-150)
[2023-10-10 07:47] LABS: Estmated Average Glucose 120; Hemoglobin A1C 5.8 % (4.0-6.0)
[2023-10-10] MEDS: levothyroxine 50 mcg Tablet PO (08:06)
[2023-10-10] MEDS: pantoprazole DR 40 mg Tablet PO (08:06)
--- NOTE | 2023-10-10 08:45 | PM.DCS ---
Discharge Providers Date of Admission: 10/09/23 11:54 Date of Discharge: October 10, 2023 Attending Provider at Admission: Maxwell Verma MD Attending Provider at Discharge: Maxwell Verma MD Primary Care Provider: Nnamdi Sanchez MD Diagnoses at Discharge Discharge Diagnosis (1) Dizziness: Status: Acute Reason for Visit Reason for Visit: N/V Hospital Course Hospital Course Jenna is a 73-year-old white female who presented to the hospital with significant dizziness and vertigo on October 08. There was concern for CVA. CT head noncontrast was negative. CTA demonstrated no large vessel thrombosis. She was hydrated, aspirin and statin were started, and an MRI performed. MRI ultimately did not show any ischemic areas. Dizziness significantly improved. By the following day the patient was feeling back to normal. Echocardiogram was normal. No evidence of arrhythmias. It was thought that stroke was not likely. No significant atherosclerotic disease was seen on the CTA. She will be discharged home, encourage fluids, follow-up with her primary care provider. Physical Exam Narrative: General exam no distress Neck is supple Cardiovascular regular rate and rhythm Lungs clear Abdomen soft Extremities no sinus clubbing edema Discharge Data Studies Completed and Pending Completed Studies During Hospitalization Category Date Time Status CT abdomen pelvis wo con [id number] Stat Cat Scan 10/09/23 08:[address] head wo con* [id number] Stat Cat Scan 10/09/23 09:14 Completed CTA head neck [CT angio headneck* [id number]] Stat Cat Scan 10/09/23 09:39 Completed XR chest 1V portable [id number] Stat Exams 10/09/23 10:53 Completed MR head wo con* [id number] Routine MRI 10/09/23 10:54 Completed CV. echo complete* [id number] Routine Ultrasound 10/09/23 12:09 Completed Radiology Impressions Abdomen/Pelvis CT 10/09/23 08:17 IMPRESSION: 1. Cholelithiasis without evidence for acute cholecystitis. 2. Mild pericolonic inflammation involving the ascending and transverse colon predominantly. This is most likely due to infection or portal hypertension. Ischemia may appear similar. No significant atherosclerotic plaque is noted in the aorta or mesenteric arteries. 3. Moderate hiatal hernia. 4. No renal obstruction. 5. Normal appendix. Head CT 10/09/23 09:14 IMPRESSION: 1. No acute intracranial hemorrhage or edema. 2. Mild cerebral atrophy and small vessel ischemic disease. Head/Neck CTA 10/09/23 09:39 IMPRESSION: 1. No significant cervical intracranial carotid artery stenosis. 2. Dominant LEFT vertebral artery. No dissection. 3. Posterior cerebral arteries are patent. 4. No cerebral aneurysm. Chest X-Ray 10/09/23 10:53 IMPRESSION: No acute cardiopulmonary abnormality. Head MRI 10/09/23 10:54 IMPRESSION: 1. No evidence of restricted diffusion to suggest acute ischemia. 2. Minimal small vessel changes. Moderate parenchymal volume loss. 3. No hemosiderin on the susceptibly weighted images. 4. No other acute findings. Laboratory Results WBC 5.95 10^3/uL (3.29-11.43) 10/10/23 05:23 RBC 4.28 10^6/uL (3.85-5.65) 10/10/23 05:23 Hgb 13.00 g/dL (11.27-16.99) 10/10/23 05:23 Hct 39.2 % (36-47) 10/10/23 05:23 MCV 91.6 fl (85-98) 10/10/23 05:23 MCH 30.4 pg (27-33) 10/10/23 05:23 MCHC 33.2 g/dL (30-55) 10/10/23 05:23 RDW 12.9 % (12.1-15.1) 10/10/23 05:23 Plt Count 276 10^3/cmm (157-399) 10/10/23 05:23 MPV 9.5 fL (7.4-10.4) 10/10/23 05:23 Neut % (Auto) 59.4 % 10/10/23 05:23 Lymph % (Auto) 30.6 % 10/10/23 05:23 [place] % (Auto) 7.7 % 10/10/23 05:23 Eos % (Auto) 1.0 % 10/10/23 05:23 Baso % (Auto) 0.8 % 10/10/23 05:23 Neut # (Auto) 3.53 10^3/uL (1.8-7.7) 10/10/23 05:23 Lymph # (Auto) 1.8 10^3/uL (0.8-4.8) 10/10/23 05:23 [place] # (Auto) 0.5 10^3/uL (0.2-0.9) 10/10/23 05:23 Eos # (Auto) 0.1 10^3/uL (0.0-0.8) 10/10/23 05:23 Baso # (Auto) 0.1 10^3/uL (0.0-0.1) 10/10/23 05:23 Nucleated RBC % (auto) 0 % 10/10/23 05:23 Nucleated RBCs # 0.0 /100WBC 10/10/23 05:23 PT 12.90 SECONDS (12.1-14.9) 10/09/23 08:15 INR 0.94 (0.8-1.2) 10/09/23 08:15 APTT 26.8 SECONDS (23.9-36.7) 10/09/23 08:15 Sodium 144 mmol/L (136-145) 10/10/23 05:23 Potassium 3.7 mmol/L (3.5-5.1) 10/10/23 05:23 Chloride 109 mmol/L (98-107) H 10/10/23 05:23 Carbon Dioxide 24 mmol/L (22-29) 10/10/23 05:23 Anion Gap 14.7 (5-19) 10/10/23 05:23 BUN 8 mg/dL (8-23) 10/10/23 05:23 Creatinine 0.5 mg/dL (0.5-0.9) 10/10/23 05:23 GFR Calculation Not Reportable 10/10/23 05:23 Glucose 102 mg/dL (65-115) 10/10/23 05:23 POC Glucose 115 mg/dL (70-110) H 10/09/23 10:02 Estimat Average Glucose 120 10/10/23 05:23 Hemoglobin A1c 5.8 % (4.0-6.0) 10/10/23 05:23 Calculated Osmolality 297 mOsm/kg (285-295) H 10/10/23 05:23 Calcium 8.2 mg/dL (8.5-10.5) L 10/10/23 05:23 Magnesium 2.1 mg/dL (1.7-2.3) 10/10/23 05:23 Total Bilirubin 0.5 mg/dL (0.15-1.2) 10/10/23 05:23 AST 12 U/L (0-32) 10/10/23 05:23 ALT 10 U/L (0-33) 10/10/23 05:23 Alkaline Phosphatase 69 U/L (35-105) 10/10/23 05:23 Troponin T Baseline < 6 ng/L (0-10) 10/09/23 08:15 Troponin T 120 Minute 6.00 ng/L (0-10) 10/09/23 10:30 Delta Troponin T 0.88821 ABS# (0-10) 10/09/23 10:30 Troponin T Hi Sens 6Hr 6.00 ng/L (0-10) 10/09/23 13:53 Troponin T Hi Sens 6Hr Delta 0.01293 ng/L (0-12) 10/09/23 13:53 Total Protein 5.9 g/dL (6.6-8.7) L 10/10/23 05:23 Albumin 3.3 g/dL (3.5-5.2) L 10/10/23 05:23 Globulin 2.6 g/dL (1.3-4.6) 10/10/23 05:23 Triglycerides 70 mg/dL (0-150) 10/10/23 05:23 Cholesterol 192 mg/dL (0-200) 10/10/23 05:23 LDL Cholesterol, Calc 119 mg/dL (50-129) 10/10/23 05:23 HDL Cholesterol 59 mg/dL (60-100) L 10/10/23 05:23 LDL/HDL Ratio 2.02 RATIO (0.00-3.22) 10/10/23 05:23 Cholesterol/HDL Ratio 3.25 mg/dL (0.0-4.40) 10/10/23 05:23 Lipase 16 U/L (13-60) 10/09/23 08:15 TSH 1.83 uIU/mL (0.27-4.20) 10/09/23 08:15 Urine Color Yellow (Yellow) 10/09/23 13:34 Urine Appearance Clear (CLEAR) 10/09/23 13:34 Urine pH 8 (5-7) H 10/09/23 13:34 Ur Specific [place] 1.005 (1.005-1.030) 10/09/23 13:34 Urine Protein Neg (Negative) 10/09/23 13:34 Urine Glucose (UA) Norm (Normal) 10/09/23 13:34 Urine Ketones 1+ (Negative) H 10/09/23 13:34 Urine Blood Neg (Negative) 10/09/23 13:34 Urine Nitrate Negative (Negative) 10/09/23 13:34 Urine Bilirubin Neg (Negative) 10/09/23 13:34 Prot Sulfosalicylic Acd Negative (Negative) 10/09/23 13:34 Urine Urobilinogen Neg mg/dL (Negative) 10/09/23 13:34 Ur Leukocyte Esterase Negative (Negative) 10/09/23 13:34 Urine Opiates Screen Negative ng/mL (Negative) 10/09/23 13:34 Ur Barbiturates Screen Negative ng/mL (Negative) 10/09/23 13:34 Ur Phencyclidine Scrn Negative ng/mL (Negative) 10/09/23 13:34 Ur Amphetamines Screen Negative ng/mL (Negative) 10/09/23 13:34 U Benzodiazepines Scrn Negative ng/mL (Negative) 10/09/23 13:34 Urine Cocaine Screen Negative ng/mL (Negative) 10/09/23 13:34 U Marijuana (THC) Screen Negative ng/mL (Negative) 10/09/23 13:34 Vitals Last Vital Signs Temp 98.0 F 10/10/23 07:54 Pulse 69 10/10/23 07:55 Resp 18 10/10/23 07:54 BP 113/58 10/10/23 07:55 Pulse Ox 92 10/10/23 07:54 O2 Del Method Room Air 10/10/23 07:54 Discharge Plan Discharge Patient Disposition: Home Condition: Stable Prescriptions: Continued (DME) Custom Sole Support See Rx Instructions .Route .MEDSUPPLY Qty: 1 0RF Rx Instructions: As directed pantoprazole 40 mg tablet,delayed release (DR/EC) 40 mg PO DAILY levothyroxine 50 mcg tablet 50 mcg PO DAILY Qty: 90 11RF alprazolam 0.25 mg tablet 0.25 mg PO TID PRN (Reason: anxiety) Qty: 90 3RF Discharge Orders: Discharge Order (Routine); Ordered 10/10/23 Ordered By: Maxwell Verma Referrals: Nnamdi Sanchez MD [Primary Care Provider] - 4-7 days (We have notified your physician's clinic of the need for a follow-up appointment to be scheduled. If you have not heard from them within the next 2 business days, please call them directly. ) Discharge Diet: Usual diet Discharge Activity: Increase activity as tolerated Patient Instructions: Dehydration (GEN), Dizziness (GEN), Opioid Safety Activity Restrictions/Additional Instructions: Increase fluids Follow-up with your primary care provider 3 to 5 days Return for any concerns Do not get overheated Discharge Attestations Time Spent in Discharge Care*: greater than 30 min Quality Metrics Clinical Quality Measures [ No reported AMI, CVA or VTE this stay] Coding Level of Care Code 68709 Total time (in minutes) for Discharge: 35 Diagnoses Dizziness R42
== END 2023-10-10 09:57 | disposition home or self-care (01) ==
LOC: ER 10:22 → ER IP 11:55 → MEDSURG 13:42
PROVIDERS: Admitting Provider Internal Medicine; Emergency Provider Family Medicine; PCP Family Medicine; Visit Provider Internal Medicine
DX: R42 Dizziness and giddiness (principal); E03.9 Hypothyroidism, unspecified; F41.9 Anxiety disorder, unspecified; K21.9 Gastro-esophageal reflux disease without esophagitis; R11.10 Vomiting, unspecified; R19.7 Diarrhea, unspecified
CPT/HCPCS: 36415; 36416; 70450; 70496; 70498; 70551; 71045; 74176; 80053; 80061; 80306; 81003; 82962; 83036; 83690; 83735; 84443; 84484; 85025; 85610; 85730; 92523; 92610; 93005; 93306; 96361; 96374; 96375; 97161; 97165; 99285; G0378; J2060; J2405; J7030; Q9967

== ENCOUNTER → 2024-01-21 09:36 | Outpatient (BNVA) | payer MEDICARE, OTHER, SELFPAY | PROVIDERS: PCP Family Medicine; Visit Provider Family Medicine | DX: E78.5 Hyperlipidemia, unspecified (principal); E03.9 Hypothyroidism, unspecified | CPT/HCPCS: 80053; 80061; 84443; 85025 ==

== ENCOUNTER 2025-01-22 09:56 | Outpatient (CLI) | payer MEDICARE, OTHER, SELFPAY ==
--- NOTE | 2025-01-22 09:59 | MM_ITS ---
WS: [id number] BILATERAL 3D TOMOSYNTHESIS DIGITAL SCREENING MAMMOGRAPHY WITH CAD CLINICAL INFORMATION: SCREENING HISTORY: Screening mammogram. No current complaints. COMPARISON: 2023 TECHNIQUE: Bilateral CC and MLO views. FINDINGS: Scattered fibroglandular densities bilaterally. No suspicious focal mass, asymmetry, calcifications, or architectural distortion. No evidence of malignancy. Vascular calcification. [place] centered calcification LEFT breast. MM/MM scr tomosynthesis [id number] IMPRESSION: DENSITY: There are scattered areas of fibroglandular density. BI-RADS: 2 - Benign. FOLLOW UP: 1 Year Follow-up Recommend return to annual screening mammography.
== END 2025-01-22 09:57 | disposition home or self-care (01) ==
LOC: RAD 09:57
PROVIDERS: PCP Family Medicine; Visit Provider Family Medicine
DX: Z12.31 Encounter for screening mammogram for malignant neoplasm of breast (principal); R92.323 Mammographic fibroglandular density, bilateral breasts; R92.1 Mammographic calcification found on diagnostic imaging of breast
CPT/HCPCS: 77063; 77067

== ENCOUNTER → 2025-01-28 11:27 | Outpatient (BNVA) | payer MEDICARE, OTHER, SELFPAY | PROVIDERS: PCP Family Medicine; Visit Provider Family Medicine | DX: Z00.00 Encounter for general adult medical examination without abnormal findings (principal); E78.5 Hyperlipidemia, unspecified; E03.9 Hypothyroidism, unspecified | CPT/HCPCS: 80053; 80061; 82306; 82607; 84443; 85025 ==